=== PATIENT | female | born 1970 | race Two or more races ===

== ENCOUNTER 2022-05-02 07:00 | Outpatient (CLI) | payer OTHER | END 2022-05-02 23:59 | disposition home or self-care (01) | LOC: LAB 07:00 | PROVIDERS: ATTEND Student in an Organized Health Care Education/Training Program | DX: Z01.812 Encounter for preprocedural laboratory examination (principal); Z20.822 Contact with and (suspected) exposure to COVID-19 | CPT/HCPCS: U0003; C9803 ==

== ENCOUNTER 2022-05-07 08:06 | Day surgery (SDC) | payer OTHER ==
[~2022-05-07 08:06] MED LIST: ANESTHESIA TRAY IN PYXIS 1 EA TRAY MC ONE; BUPIVACAINE 0.5 % PF 150 MG/30 ML VIAL ONE; POLYMYXIN B SULFATE 500,000 UNITS ONE
[2022-05-07] MEDS ORDERED: FENTANYL PF 250MCG/5ML AMPUL ONE (09:47)
[2022-05-07] MEDS ORDERED: MIDAZOLAM HCL 2 MG/2ML VIAL ONE (09:48)
[2022-05-07] MEDS ORDERED: FAMOTIDINE/PF INJ 20 MG/2 ML VIAL IV ONE (09:48)
[2022-05-07] MEDS ORDERED: HYDROMORPHONE INJ 2 MG/ML DISP.SYRIN ONE (09:48)
[2022-05-07] MEDS ORDERED: SUCCINYLCHOLINE CHLORIDE 20 MG/ML VIAL ONE (09:49)
--- NOTE | 2022-05-07 14:55 | NUR ---
PATIENT HAD A SURGERY TODAY WITH DR. SANTACRUZ - OPEN RIGHT HIP TROCHANTERIC BURSECTOMY. DRESSING C/D/I. COLD COMPRESS APPLIED. WBAT ON RLE. DISCHARGE INSTRUCTIONS AND HEALTH TEACHINGS GIVEN, PT VERBALIZED UNDERSTANDING. BOYFRIEND AT BEDSIDE.
== END 2022-05-07 19:00 | disposition home or self-care (01) ==
LOC: DS 08:06 → MED 08:09 → UNDOADMIN 08:09 → MED 09:30 → UNDODISIN 15:30 → DS 19:00
PROVIDERS: ATTEND Student in an Organized Health Care Education/Training Program
DX: M70.61 Trochanteric bursitis, right hip (principal); Z20.822 Contact with and (suspected) exposure to COVID-19
CPT/HCPCS: 27062; J0690; J3490 ×3; J1100; J2704; J1170; J2765; J0330 ×2; J2405; J7030; J2250; J3010; A6209; G0378

== ENCOUNTER 2022-08-08 11:12 | Outpatient (CLI) | payer OTHER | END 2022-08-08 23:59 | disposition home or self-care (01) | LOC: LAB 11:12 | PROVIDERS: ATTEND Student in an Organized Health Care Education/Training Program | DX: Z01.812 Encounter for preprocedural laboratory examination (principal); Z20.822 Contact with and (suspected) exposure to COVID-19 | CPT/HCPCS: U0003; C9803 ==

== ENCOUNTER 2022-08-13 10:25 | Day surgery (SDC) | payer OTHER ==
[~2022-08-13] VITALS: Ht 175.3 cm; Wt 80.7 kg
[2022-08-13] MEDS ORDERED: FENTANYL PF 100MCG/2ML AMPUL ONE (12:23)
[2022-08-13] MEDS ORDERED: FAMOTIDINE/PF INJ 20 MG/2 ML VIAL IV ONE (12:24)
[2022-08-13] MEDS ORDERED: BUPIVACAINE 0.5 % PF 150 MG/30 ML VIAL ONE (12:47)
[2022-08-13] MEDS ORDERED: HYDROMORPHONE 1 MG/1 ML DISP.SYRIN ONE (13:38)
[2022-08-13 14:10] VITALS: BP 103/57
[2022-08-13 14:25] VITALS: BP 105/63
[2022-08-13] MEDS ORDERED: oxyCODONE/APAP (5/325 MG) 1 UDTAB TABLET PO PRN (14:30)
[2022-08-13 14:40] VITALS: BP 108/68
[2022-08-13] MEDS: oxyCODONE/APAP (5/325 MG) 1 UDTAB TABLET PO PRN (14:47)
[2022-08-13 14:55] VITALS: BP 110/70
[2022-08-13 15:10] VITALS: BP 108/63
[2022-08-13 16:00] VITALS: BP 113/73
== END 2022-08-13 23:59 | disposition home or self-care (01) ==
LOC: DS 10:25 → UNDOADMIN 10:26 → MED 10:26 → UNDODISIN 16:25 → DS 23:59
PROVIDERS: ATTEND Student in an Organized Health Care Education/Training Program
DX: M76.32 Iliotibial band syndrome, left leg (principal); E66.3 Overweight; K21.9 Gastro-esophageal reflux disease without esophagitis; Z79.899 Other long term (current) drug therapy
CPT/HCPCS: 84703-TC; A6209; G0378; J0690; J1100; J1170; J1885; J2405; J2704; J2765; J3010; J3490; J7030